=== PATIENT | female | born 1985 | race African-American/Black ===

== ENCOUNTER 2018-06-26 20:23 | Inpatient (IN) | payer OTHER ==
[~2018-06-26] VITALS: Ht 162.6 cm; Wt 76.8 kg
[2018-06-26] MEDS ORDERED: PROFERRIN ES12 MG PO (20:51)
[2018-06-26] MEDS ORDERED: OMEGA-31 SGL (20:51)
[2018-06-26] MEDS ORDERED: PRENATAL MVI (20:51)
[2018-06-26 21:00] VITALS: BP 106/65; PULSE 74; TEMP 97.3
--- NOTE | 2018-06-26 21:00 | NUR ---
2034- Patient ambulatory to R-5 with and fuel testing technician from ED. Patient into restroom to void and change into gown. 2039- Patient into bed. EFM and TOCO on and tracing. Patient's states she has been having mild contractions since 1000 and they have increased in intensity and frequency since 1799. He states contractions are every 5 minutes. Patient is seen breathing through contractions with tense look. Patient's states she has been spotting since being seen by 2 days ago. Patient denies LOF. 2049- SVE /2 with bloody show by RANJEET Azar. 2099- Assessment completed. VSS.
[2018-06-26 21:30] VITALS: BP 134/83; PULSE 62
[2018-06-26 22:00] VITALS: BP 120/57; PULSE 69
[2018-06-26 22:30] VITALS: BP 126/83; PULSE 69
[2018-06-26 23:00] VITALS: BP 126/69; PULSE 66
[2018-06-26 23:30] VITALS: BP 129/75; PULSE 65
[2018-06-27] VITALS (22 sets, daily range): BP systolic 105–138; BP diastolic 57–97; PULSE 68–89; TEMP 97.5–984
--- NOTE | 2018-06-27 00:30 | NUR ---
2140- Patient out of bed to void and ambulate. EFM and TOCO off. 2150- Patient back to bed. EFM and TOCO on and tracing. 2154- SVE by RANJEET Azar 2200- See Physician Notification. 2250- Patient out of bed to void and ambulate. EFM and TOCO off. 2300- SVE 2 by RANJEET Azar 2320- See Physician Notification. Orders for Admission received. 2330- IV started. LR infusing. Labs collected and sent. Consents signed. 2357- Patient out of bed to void and ambulate. EFM and TOCO off. 0007- Patient back to bed.. EFM and TOCO on and tracing. 0030- Report given to RANJEET Villarreal.
[2018-06-27 00:43] LABS: BASO % 0.3 % (0.0-2.0); EOS # 0.1 (0.0-0.7); EOS % 1.1 % (0-4.0); GRAN # 3.8 (1.4-6.5); GRAN % 53.8 % (42.2-75.2); HEMOGLOBIN 12.4 g/dl (12.5-16.0); LYMPH # 2.6 (1.2-3.4); LYMPH % 37.5 % (20.0-51.0); MEAN CELL VOLUME 89 fl (80.0-100.0); MEAN CORPUSCULAR HEMOGLOBIN 30 pg (27.0-31.0); MEAN CORPUSCULAR HGB CONC 34 g/dl (33.0-37.0); MEAN PLATELET VOLUME 13.6 fl (7.4-10.4); MONO # 0.5 (0.1-0.6); MONO % 6.7 % (1.7-9.3); PLATELET COUNT 106 K/mm3 (130-400); RED BLOOD COUNT 4.13 M/mm3 (4.10-5.30); REDCELL DISTRIBUTION WIDTH-CV 13.4 % (11.5-14.5)
[2018-06-27 00:45] LABS: HEMATOCRIT 36.8 % (37.0-47.0)
--- NOTE | 2018-06-27 03:25 | NUR ---
RN at bedside discussing plan of care with patient and spouse. FOB wondering how much longer labor will take and requesting AROM as patient is getting tired and hurting more. Will contact Dr. Kelly, see physician notification.
--- NOTE | 2018-06-27 03:54 | NUR ---
0345 - RN at bedside, pt visibly more uncomfortable with contractions. Appears to be pushing at times. 0349 - SVE complete and +1, pt encouraged not to push with contractions and focus on her breathing. Dr. Kelly notified. Nursery at bedside. 0350 - Dr. Kelly at bedside, pt positioned into footplates, educated on pushing. 0354 - Spontaneous rupture of membranes, clear fluid. Spontaneous vaginal delivery of viable baby boy. Infant placed on mothers abdomen, care of infant assumed to Lisa, Nursery RN. Cord clamped and cut by Dr. Kelly. 0356 - Spontaneous delivery of intact placenta. Pitocin started at 333 mL/hr per protocol. Fundal massage initiated, fundus firm and down 1 from umbilicus. Local lidocaine given for repair. Second degree perineal laceration repaired by Dr. Kelly. 0400 - Pericare provided. New chux pad beneath patient. Ice pack applied to perineum. Pt repositioned in bed for comfort. recovery started.
--- NOTE | 2018-06-27 06:00 | NUR ---
Pt up to bathroom with standby assistance. Pt able to void 300 mL. Pericare explained and provided. New pad and panties applied. Clean gown on. Pt educated on need for 3 voids. Pt able to ambulate to room 214 with standby assistance.
--- NOTE | 2018-06-27 12:23 | NUR ---
stopped by to offer congrats.
[2018-06-28 07:35] VITALS: BP 111/67; PULSE 81; TEMP 98.1
[2018-06-28 08:05] LABS: BASO % 0.3 % (0.0-2.0); EOS # 0.1 (0.0-0.7); EOS % 1.1 % (0-4.0); GRAN # 4.1 (1.4-6.5); GRAN % 66.9 % (42.2-75.2); HEMOGLOBIN 11.1 g/dl (12.5-16.0); LYMPH # 1.6 (1.2-3.4); LYMPH % 25.7 % (20.0-51.0); MEAN CELL VOLUME 92 fl (80.0-100.0); MEAN CORPUSCULAR HEMOGLOBIN 30 pg (27.0-31.0); MEAN CORPUSCULAR HGB CONC 33 g/dl (33.0-37.0); MEAN PLATELET VOLUME 12.9 fl (7.4-10.4); MONO # 0.3 (0.1-0.6); MONO % 5.5 % (1.7-9.3); PLATELET COUNT 84 K/mm3 (130-400); REDCELL DISTRIBUTION WIDTH-CV 13.7 % (11.5-14.5)
[2018-06-28 08:10] LABS: HEMATOCRIT 33.9 % (37.0-47.0)
[2018-06-28] MEDS ORDERED: MOTRIN 600600 MG/TAB PO (09:13)
== END 2018-06-28 13:55 | disposition home or self-care (01) | DRG 807 ==
LOC: LDRO 20:23 → LDR 23:33 → OB 06-27 06:54
PROVIDERS: Obstetrics & Gynecology; ADMIT Obstetrics & Gynecology
PROC: 10E0XZZ Delivery of Products of Conception, External Approach (ICD-10-PCS; principal; 2018-06-26)
PROC: 0KQM0ZZ Repair Perineum Muscle, Open Approach (ICD-10-PCS; 2018-06-26)
DX: O34.13 Maternal care for benign tumor of corpus uteri, third trimester (principal); Z37.0 Single live birth; D25.9 Leiomyoma of uterus, unspecified; Z3A.39 39 weeks gestation of pregnancy; O99.62 Diseases of the digestive system complicating childbirth; K21.9 Gastro-esophageal reflux disease without esophagitis; Z90.79 Acquired absence of other genital organ(s); O70.1 Second degree perineal laceration during delivery
CPT/HCPCS: J2590; J7120

== ENCOUNTER 2018-07-18 01:33 | Emergency (ER) | payer OTHER ==
[~2018-07-18] VITALS: Ht 168 cm; Wt 78.6 kg
[~2018-07-18 01:33] MED LIST: MOTRIN 600600 MG/TAB PO; OMEGA-31 SGL; PRENATAL MVI; PROFERRIN ES12 MG PO
[2018-07-18 01:38] VITALS: TEMP 98.8
[2018-07-18 02:04] LABS: BASO % 0.3 % (0.0-2.0); EOS # 0.1 (0.0-0.7); EOS % 1.4 % (0-4.0); GRAN # 6.4 (1.4-6.5); GRAN % 72.3 % (42.2-75.2); HEMATOCRIT 41.2 % (37.0-47.0); HEMOGLOBIN 13.6 g/dl (12.5-16.0); LYMPH # 1.6 (1.2-3.4); LYMPH % 18.3 % (20.0-51.0); MEAN CELL VOLUME 90 fl (80.0-100.0); MEAN CORPUSCULAR HEMOGLOBIN 30 pg (27.0-31.0); MEAN CORPUSCULAR HGB CONC 33 g/dl (33.0-37.0); MEAN PLATELET VOLUME 11.7 fl (7.4-10.4); MONO # 0.6 (0.1-0.6); MONO % 7.2 % (1.7-9.3); PLATELET COUNT 178 K/mm3 (130-400); RED BLOOD COUNT 4.58 M/mm3 (4.10-5.30); REDCELL DISTRIBUTION WIDTH-CV 12.6 % (11.5-14.5)
[2018-07-18 02:16] LABS: ALBUMIN 3.9 gm/dL (3.5-5.0); BILIRUBIN,TOTAL 0.4 mg/dL (0.0-1.0); C-REACTIVE PROTEIN 1.3 mg/dL (0.0-0.9); CALCIUM 9.3 mg/dL (8.4-10.2); CREATININE, serum 0.55 (0.52-1.25); POTASSIUM 3.9 mmol/L (3.4-5.0); TOTAL PROTEIN 7.2 gm/dL (6.4-8.2)
[2018-07-18 03:00] LABS: COLLECTION METHOD CLEAN CATCH
[2018-07-18 03:06] LABS: PH 5 (5-8); SQUAMOUS EPITHELIAL 0-2 /hpf; URINE APPEARANCE Clear; URINE BACTERIA None Seen /hpf; URINE BILIRUBIN Negative (NEGATIVE); URINE BLOOD Negative (NEGATIVE); URINE COLOR Yellow; URINE GLUCOSE Negative (NEGATIVE); URINE KETONE Negative (NEGATIVE); URINE LEUKOCYTE ESTERASE Trace (NEGATIVE); URINE NITRATE Negative (NEGATIVE); URINE PROTEIN(semi-quant) Negative (NEGATIVE); URINE RBC 0-2 /hpf; URINE UROBILINOGEN Negative (NEGATIVE)
[2018-07-18] MEDS ORDERED: ZOFRAN ODT8 MG PO (04:10)
[2018-07-18 04:19] VITALS: BP 112/72; PULSE 68
== END 2018-07-18 04:18 | disposition home or self-care (01) ==
LOC: COL.ER 01:33
PROVIDERS: Emergency Medicine
DX: R10.84 Generalized abdominal pain (principal)
CPT/HCPCS: C9113; J2270; J2405; J7030; Q9967

== ENCOUNTER → 2018-08-18 | Outpatient (CLI) | payer OTHER ==
[~2018-08-18] MED LIST changes: +ZOFRAN ODT8 MG PO
[2018-08-18 20:36] LABS: BASO % 0.7 % (0.0-2.0); EOS # 0.3 (0.0-0.7); EOS % 4.4 % (0-4.0); GRAN # 2.7 (1.4-6.5); GRAN % 46.6 % (42.2-75.2); HEMOGLOBIN 12.7 g/dl (12.5-16.0); LYMPH # 2.4 (1.2-3.4); LYMPH % 42.7 % (20.0-51.0); MEAN CELL VOLUME 87 fl (80.0-100.0); MEAN CORPUSCULAR HEMOGLOBIN 29 pg (27.0-31.0); MEAN CORPUSCULAR HGB CONC 33 g/dl (33.0-37.0); MEAN PLATELET VOLUME 12.2 fl (7.4-10.4); MONO # 0.3 (0.1-0.6); MONO % 5.4 % (1.7-9.3); PLATELET COUNT 217 K/mm3 (130-400); RED BLOOD COUNT 4.36 M/mm3 (4.10-5.30); REDCELL DISTRIBUTION WIDTH-CV 12.3 % (11.5-14.5)
[2018-08-18 21:06] LABS: BILIRUBIN,TOTAL 0.4 mg/dL (0.0-1.0); CALCIUM 9.3 mg/dL (8.4-10.2); CREATININE, serum 0.59 (0.52-1.25); POTASSIUM 4.1 mmol/L (3.4-5.0); TOTAL PROTEIN 7.5 gm/dL (6.4-8.2)
== END ==
LOC: ZLAB.FHCC 17:46
DX: Z01.89 Encounter for other specified special examinations (principal)

== ENCOUNTER → 2018-09-17 | Outpatient (CLI) | payer OTHER | LOC: ZCOL.LAB 14:35 | DX: R94.5 Abnormal results of liver function studies (principal) ==

== ENCOUNTER → 2018-11-12 | Outpatient (CLI) | payer OTHER | LOC: COL.LAB 16:28 | DX: R05 Cough (principal) ==

== ENCOUNTER 2023-03-28 20:15 | Emergency (ER) | payer OTHER ==
[~2023-03-28] VITALS: Ht 167.6 cm; Wt 81.8 kg
[2023-03-28 20:28] VITALS: TEMP 98.6
[2023-03-28] MEDS ORDERED: NS 1,000 ML IV ONE (21:15)
[2023-03-28] MEDS ORDERED: diphenhydrAMINE 50 MG/ML 1 ML VIAL IV ONE (21:15)
[2023-03-28] MEDS ORDERED: Acetaminophen 500 MG TAB PO ONE (21:15)
[2023-03-28 21:55] LABS: COLLECTION METHOD CLEAN CATCH
[2023-03-28 21:58] LABS: BASO % 0.4 % (0.0-2.0); EOS % 0.6 % (0.0-4.0); GRAN # 3.3 K/mm3 (1.4-6.5); GRAN % 68.1 % (42.2-75.2); HEMATOCRIT 39.3 % (37.0-47.0); HEMOGLOBIN 13.1 g/dl (12.5-16.0); LYMPH # 0.9 K/mm3 (1.2-3.4); LYMPH % 18.8 % (20.0-51.0); MEAN CELL VOLUME 83 fl (80.0-100.0); MEAN CORPUSCULAR HEMOGLOBIN 28 pg (27-31); MEAN CORPUSCULAR HGB CONC 33 g/dl (33.0-37.0); MEAN PLATELET VOLUME 11.3 fl (7.4-10.4); MONO # 0.6 K/mm3 (0.1-0.6); MONO % 11.9 % (1.7-9.3); PLATELET COUNT 199 K/mm3 (130-400); RED BLOOD COUNT 4.72 M/mm3 (4.10-5.30); REDCELL DISTRIBUTION WIDTH-CV 13.1 % (11.5-14.5)
[2023-03-28 22:06] LABS: URINE APPEARANCE CLOUDY (CLEAR/HAZY); URINE BLOOD TRACE (NEGATIVE); URINE COLOR YELLOW (YELLOW); URINE GLUCOSE NEGATIVE (NEGATIVE); URINE KETONE NEGATIVE (NEGATIVE); URINE NITRATE NEGATIVE (NEGATIVE); URINE PROTEIN(semi-quant) NEGATIVE (NEGATIVE); URINE UROBILINOGEN 0.2 E.U/dL (0.2-1.0)
[2023-03-28 22:18] LABS: BILIRUBIN,TOTAL 0.4 mg/dL (0.2-1.2); CALCIUM 9.7 mg/dL (8.4-10.2); CREATININE, serum 0.7 mg/dL (0.57-1.11); TOTAL PROTEIN 7.9 gm/dL (6.2-8.1)
[2023-03-28 22:38] LABS: TSH w REFLEX 2.832 uIU/mL (0.350-4.940)
[2023-03-28 23:34] VITALS: BP 116/70; PULSE 81
== END 2023-03-29 00:14 | disposition home or self-care (01) ==
LOC: COL.ER 20:15
PROVIDERS: Emergency Medicine
DX: I10 Essential (primary) hypertension (principal); R05.9 Cough, unspecified
CPT/HCPCS: J1200; J2765; J7030

== ENCOUNTER 2023-04-10 04:16 | Emergency (ER) | payer OTHER ==
[~2023-04-10] VITALS: Ht 158 cm; Wt 81.8 kg
[2023-04-10] MEDS ORDERED: MUCINEX 60600 MG/TA1 PO (05:30)
[2023-04-10] MEDS ORDERED: VENTOLIN0.09 MG IH (05:30)
[2023-04-10 05:44] VITALS: BP 135/93; PULSE 95; TEMP 98.3
== END 2023-04-10 05:44 | disposition home or self-care (01) ==
LOC: COL.ER 04:16
DX: J20.9 Acute bronchitis, unspecified (principal)